=== PATIENT | male | born 1940 | race Two or more races ===

== ENCOUNTER 2024-06-08 13:02 | Inpatient (IN) | payer MEDICARE ==
[~2024-06-08] VITALS: Ht 170.2 cm; Wt 66.8 kg
[2024-06-08] MEDS ORDERED: ACET325T53 PO (18:10)
[2024-06-08] MEDS ORDERED: ENOX40DI SQ (18:10)
[2024-06-08] MEDS ORDERED: BENZ1LOZ58 MM (18:11)
[2024-06-08] MEDS ORDERED: POLY17PO4 PO (18:12)
[2024-06-08] MEDS ORDERED: PANT40TA2 PO (18:12)
[2024-06-08] MEDS ORDERED: POLY15DR31 EACHEYE (18:13)
[2024-06-08 20:59] VITALS: BP 106/51; TEMP 100.4; O2SAT 93
[2024-06-08] MEDS: ACETAMINOPHEN 500 MG TABLET PO PRN (21:11)
[2024-06-09 05:56] VITALS: BP 117/59; TEMP 98.3; O2SAT 95
[2024-06-09] MEDS: BENZOCAINE/MENTH/CETYLPYRD LOZENGE MM PRN (06:36)
[2024-06-09] MEDS: PANTOPRAZOLE SODIUM 40 MG TABLET.DR PO SCH (06:36)
[2024-06-09 10:24] VITALS: BP 111/49; TEMP 98.3; O2SAT 97
[2024-06-09] MEDS: MIRALAX 17 GM POWD.PACK PO PRN (10:58)
[2024-06-09] MEDS ORDERED: MAGNESIUM CITRATE 296 ML BOTTLE PO PRN (12:15)
[2024-06-09 12:47] LABS: BASOPHILS % (AUTO) 0.3 % (0.0-2.0); EOSINOPHILS # (AUTO) 0.1 K/uL (0.0-0.7); EOSINOPHILS % (AUTO) 1.3 % (0.0-7.0); HEMATOCRIT 26.5 % (36.7-47.1); HEMOGLOBIN 9.2 g/dL (12.5-16.3); LYMPHOCYTES # (AUTO) 0.7 K/uL (0.8-4.8); LYMPHOCYTES % (AUTO) 8.4 % (20.5-51.5); MEAN CORPUSCULAR HEMOGLOBIN 33.6 uug (23.8-33.4); MEAN CORPUSCULAR HGB CONC 35 g/dL (32.5-36.3); MEAN CORPUSCULAR VOLUME 96.8 fL (73.0-96.2); MONOCYTES # (AUTO) 0.8 K/uL (0.1-1.30); MONOCYTES % (AUTO) 9.4 % (0.0-11.0); NEUTROPHILS # (AUTO) 6.5 K/uL (1.8-8.9); NEUTROPHILS % (AUTO) 80.6 % (38.5-71.5); PLATELET COUNT (AUTO) 170 K/uL (152-348); RED BLOOD CELL COUNT(AUTO) 2.73 MIL/uL (4.06-5.63); RED CELL DISTRIBUTION WIDTH 13.4 % (12.1-16.2)
[2024-06-09 12:49] LABS: CALCIUM 8.5 mg/dL (8.5-10.1); CARBON DIOXIDE 28 mmol/L (21-32); CHLORIDE 104 mmol/L (98-107); CREATININE 1.3 mg/dL (0.6-1.3); GLUCOSE 167 mg/dL (74-106); POTASSIUM 3.9 mmol/L (3.5-5.1); SODIUM SERUM 138 mmol/L (136-145); UREA NITROGEN, BLOOD 30 mg/dL (7-18)
[2024-06-09] MEDS: MAGNESIUM HYDROXIDE 30 ML LIQUID UDC PO SCH (12:59)
[2024-06-09] MEDS: ENOXAPARIN SODIUM 40 MG/0.4 ML DISP.SYRIN SQ SCH (13:02)
[2024-06-09 20:20] VITALS: BP 116/53; TEMP 99; O2SAT 93
[2024-06-10 06:34] VITALS: BP 114/57; TEMP 98.2; O2SAT 96
[2024-06-10 16:22] VITALS: BP 105/59; TEMP 98; O2SAT 96
[2024-06-10 20:00] VITALS: BP 106/55; TEMP 97.9; O2SAT 95
[2024-06-11 06:00] VITALS: BP 109/60; TEMP 97.9; O2SAT 95
[2024-06-11 16:32] VITALS: BP 107/58; TEMP 98.3
[2024-06-11 21:10] VITALS: BP 104/48; TEMP 97.6; O2SAT 95
[2024-06-12 06:06] VITALS: BP 159/68; TEMP 97.8; O2SAT 96
[2024-06-12 07:13] LABS: BASOPHILS # (AUTO) 0.1 K/UL (0.0-0.2); BASOPHILS % (AUTO) 0.8 % (0.0-2.0); EOSINOPHILS # (AUTO) 0.2 K/uL (0.0-0.7); HEMOGLOBIN 9.6 g/dL (12.5-16.3); LYMPHOCYTES # (AUTO) 0.9 K/uL (0.8-4.8); LYMPHOCYTES % (AUTO) 15.5 % (20.5-51.5); MEAN CORPUSCULAR HEMOGLOBIN 32.8 uug (23.8-33.4); MEAN CORPUSCULAR HGB CONC 34 g/dL (32.5-36.3); MEAN CORPUSCULAR VOLUME 95.8 fL (73.0-96.2); MONOCYTES # (AUTO) 0.6 K/uL (0.1-1.30); MONOCYTES % (AUTO) 10.2 % (0.0-11.0); NEUTROPHILS # (AUTO) 4.3 K/uL (1.8-8.9); NEUTROPHILS % (AUTO) 69.5 % (38.5-71.5); PLATELET COUNT (AUTO) 217 K/uL (152-348); RED BLOOD CELL COUNT(AUTO) 2.92 MIL/uL (4.06-5.63); RED CELL DISTRIBUTION WIDTH 13.5 % (12.1-16.2); WHITE BLOOD COUNT (AUTO) 6.1 K/uL (3.6-10.2)
[2024-06-12 07:15] LABS: DIFFERENTIAL COMMENT 1
[2024-06-12 07:31] LABS: CALCIUM 9.4 mg/dL (8.5-10.1); CARBON DIOXIDE 31 mmol/L (21-32); CHLORIDE 104 mmol/L (98-107); CREATININE 1.2 mg/dL (0.6-1.3); GLUCOSE 109 mg/dL (74-106); MAGNESIUM 2.4 mg/dL (1.8-2.4); POTASSIUM 4.9 mmol/L (3.5-5.1); SODIUM SERUM 141 mmol/L (136-145); UREA NITROGEN, BLOOD 27 mg/dL (7-18)
[2024-06-12 16:38] VITALS: BP 107/57; TEMP 98; O2SAT 95
[2024-06-12 19:35] LABS: *BILIRUBIN,URIN NEGATIVE (NEGATIVE); *BLOOD, URINE 2+ (NEGATIVE); *CLARITY,URINE CLOUDY (CLEAR); *COLOR,URINE YELLOW (YELLOW); *KETONES,URINE NEGATIVE (NEGATIVE); *PROTEIN,URINE TRACE (NEGATIVE); *UROBILINOGEN,URINE 0.2 E.U./dl (NORMAL); LEUKOCYTE ESTERASE ,URINE 3+ (NEGATIVE); NITRITE, URINE NEGATIVE (NEGATIVE); UGLUCOSE NEGATIVE (NEGATIVE)
[2024-06-12 19:49] VITALS: BP 130/46; TEMP 97.9; O2SAT 95
[2024-06-13] MEDS ORDERED: diphenhydrAMINE 25 MG CAP PO PRN (02:00)
[2024-06-13 06:40] VITALS: BP 115/53; TEMP 97.9; O2SAT 95
[2024-06-13 16:04] VITALS: BP 102/48; TEMP 98; O2SAT 95
[2024-06-13 21:27] VITALS: BP 110/51; TEMP 97.9; O2SAT 96
[2024-06-14 04:45] VITALS: BP 115/65; TEMP 98; O2SAT 97
[2024-06-14 09:26] VITALS: BP 107/63; TEMP 97.6; O2SAT 99
[2024-06-14] MEDS: VITAMIN E CREAM 56.7 GM JAR TP SCH (11:37)
[2024-06-14 16:11] VITALS: BP 101/54; TEMP 97.9; O2SAT 98
[2024-06-14] MEDS: CEphaleXIN 500 MG CAPSULE PO SCH (16:59)
[2024-06-14 20:11] VITALS: BP 100/49; TEMP 98.1; O2SAT 96
[2024-06-15] MEDS: diphenhydrAMINE 25 MG CAP PO ONE (03:21)
[2024-06-15 06:13] VITALS: BP 129/55; TEMP 97.6; O2SAT 97
[2024-06-15 18:19] VITALS: BP 104/57; TEMP 97.8; O2SAT 96
[2024-06-15 19:00] VITALS: BP 102/49; TEMP 98.1; O2SAT 94
[2024-06-16 06:00] VITALS: BP 105/61; TEMP 97.8; O2SAT 94
[2024-06-16 08:32] LABS: BASOPHILS # (AUTO) 0.1 K/UL (0.0-0.2); EOSINOPHILS # (AUTO) 0.2 K/uL (0.0-0.7); EOSINOPHILS % (AUTO) 3.3 % (0.0-7.0); HEMOGLOBIN 10.1 g/dL (12.5-16.3); LYMPHOCYTES # (AUTO) 1.1 K/uL (0.8-4.8); MEAN CORPUSCULAR HEMOGLOBIN 32.3 uug (23.8-33.4); MEAN CORPUSCULAR HGB CONC 34 g/dL (32.5-36.3); MONOCYTES # (AUTO) 0.6 K/uL (0.1-1.30); MONOCYTES % (AUTO) 9.7 % (0.0-11.0); NEUTROPHILS # (AUTO) 4.4 K/uL (1.8-8.9); PLATELET COUNT (AUTO) 301 K/uL (152-348); RED BLOOD CELL COUNT(AUTO) 3.12 MIL/uL (4.06-5.63); RED CELL DISTRIBUTION WIDTH 13.4 % (12.1-16.2); WHITE BLOOD COUNT (AUTO) 6.4 K/uL (3.6-10.2)
[2024-06-16 08:56] LABS: IRON, SERUM 51 ug/dL (50-175)
[2024-06-16 09:02] LABS: DIFFERENTIAL COMMENT 1
[2024-06-16 09:19] LABS: ALANINE AMINOTRANSFERASE 25 U/L (16-63); ALBUMIN 2.4 g/dL (3.4-5.0); ALKALINE PHOSPHATASE 116 U/L (50-136); ASPARTATE AMINOTRANSFERASE 21 U/L (15-37); BILIRUBIN,TOTAL 0.3 mg/dL (0.2-1.0); CALCIUM 8.9 mg/dL (8.5-10.1); CARBON DIOXIDE 29 mmol/L (21-32); CHLORIDE 103 mmol/L (98-107); CHOLESTEROL 111 mg/dL (<200); CREATININE 1.3 mg/dL (0.6-1.3); GLUCOSE 95 mg/dL (74-106); HDL CHOLESTEROL 42 mg/dL (40-60); MAGNESIUM 2.7 mg/dL (1.8-2.4); PHOSPHOROUS 3.7 mg/dL (2.5-4.9); POTASSIUM 4.9 mmol/L (3.5-5.1); SODIUM SERUM 138 mmol/L (136-145); TOTAL PROTEIN, SERUM 6.7 g/dL (6.4-8.2); TRIGLYCERIDES 129 MG/DL (30-150); UREA NITROGEN, BLOOD 36 mg/dL (7-18)
[2024-06-16 11:27] LABS: THYROID STIMULATING HORMONE 3.356 mIU/mL (0.358-3.740)
[2024-06-16 15:05] VITALS: BP 111/66; TEMP 98.4; O2SAT 94
[2024-06-16 19:54] VITALS: BP 105/54; TEMP 97.7; O2SAT 94
[2024-06-16] MEDS: CIPROFLOXACIN HCL 250 MG TABLET PO SCH (20:03)
[2024-06-17 05:27] VITALS: BP 103/56; TEMP 97.6; O2SAT 94
[2024-06-17 16:06] VITALS: BP 102/54; TEMP 97.9; O2SAT 98
[2024-06-17 20:00] VITALS: TEMP 98.3
[2024-06-18] MEDS ORDERED: MAGNESIUM CITRATE 296 ML BOTTLE PO PRN (05:45)
[2024-06-18 06:00] VITALS: TEMP 97.8
[2024-06-18 16:11] VITALS: BP 102/48; TEMP 97.9; O2SAT 95
[2024-06-18 19:50] VITALS: BP 99/58; TEMP 97.8; O2SAT 95
[2024-06-18] MEDS: MELATONIN 3 MG TABLET PO PRN (20:46)
[2024-06-19 15:16] VITALS: BP 114/50; TEMP 98.1; O2SAT 95
[2024-06-19 20:22] VITALS: BP 105/59; TEMP 97.3; O2SAT 96
== END 2024-06-20 14:00 | disposition home health service (06) | DRG 559 ==
PROVIDERS: ADMIT Physical Medicine & Rehabilitation Pain Medicine; ATTEND Physical Medicine & Rehabilitation Pain Medicine
DX: Z47.1 Aftercare following joint replacement surgery (principal); N17.0 Acute kidney failure with tubular necrosis; C79.51 Secondary malignant neoplasm of bone; D68.59 Other primary thrombophilia; N39.0 Urinary tract infection, site not specified; R53.81 Other malaise; R53.1 Weakness; Z96.641 Presence of right artificial hip joint; C61 Malignant neoplasm of prostate; E53.8 Deficiency of other specified B group vitamins; D64.9 Anemia, unspecified; K59.09 Other constipation; K57.30 Diverticulosis of large intestine without perforation or abscess without bleeding; Z93.6 Other artificial openings of urinary tract status; Z92.21 Personal history of antineoplastic chemotherapy; E78.5 Hyperlipidemia, unspecified; Z91.81 History of falling; Z90.49 Acquired absence of other specified parts of digestive tract; Z74.09 Other reduced mobility
CPT/HCPCS: 36415; 73502; 83550; 83735; 84100; 84443; 85025; A9150; J1650; Q0163